=== PATIENT | female | born 1975 | race Caucasian/White ===

== ENCOUNTER 2017-03-17 03:29 | Emergency (ER) | payer SELFPAY ==
--- NOTE | 2017-03-17 19:49 | ER ---
ADMIT: 03/17/2017 RM/LOC: ER [facility] MR#: [id number] [facility] [address] JULIUS MUSTAFAA [address] [place] [id number] Emergency Room Report SEX: F AGE: 41 : 1975 DATE: 03/17/2017 The patient is a 41-year-old female with PTSD, hypertension, depression, out of her Seroquel and lisinopril, has no money for transportation, arrived by ambulance. Exam is remarkable for nontoxic, afebrile female with blood pressure 158/97, pulse rate of 97. Alert, oriented, and cooperative with neutral mood. Good eye contact. Denies suicidal or homicidal ideation. Discharged on Seroquel 300 mg now and another 300 mg when home by cab. Lisinopril 10 mg now. Script for Seroquel 600 mg at bedtime x3 days, and lisinopril 10 mg daily, #3. Medical Social Work consult to coordinate with [facility] for medical assistance for prescription drug cost. Seth Wiley MD/ elijahl JOB #: [id number] CC: Seth Wiley MD, Attending Physician Salud Ferrari MD, Family Physician [facility] Salud Ferrari MD
--- NOTE | 2017-03-21 09:54 | NUR ---
Received referral from ED to help pt with medications. Attempted to contact pt. No answer, voice mail is not set up.
--- NOTE | 2017-03-22 15:29 | NUR ---
SWS contacted pt. States she got her medications filled yesturday. Deny any needs or concerns at this time.
== END 2017-03-17 04:09 | disposition home or self-care (01) ==
LOC: ER 03:29
DX: F32.9 Major depressive disorder, single episode, unspecified (principal); F41.1 Generalized anxiety disorder; I10 Essential (primary) hypertension; Z88.1 Allergy status to other antibiotic agents; Z88.6 Allergy status to analgesic agent; Z79.899 Other long term (current) drug therapy

== ENCOUNTER 2017-03-20 05:55 | Emergency (ER) | payer SELFPAY ==
--- NOTE | 2017-03-20 07:20 | ER ---
ADMIT: 03/20/2017 RM/LOC: ER [facility] MR#: [id number] [address] [facility] [id number] JULIUS MUSTAFAA [address] [place] [id number] Emergency Room Report SEX: F AGE: 41 : 1975 DATE: 03/20/2017 The patient is a 41-year-old female with PTSD, hypertension, depression, off her Seroquel and lisinopril due to money issues for over 30 days. Saw this physician 3 days ago for same after calling ambulance because she had no money for transportation at that time. Prescribed Seroquel for 3 days as well as lisinopril. Told her to get into [facility], which she did not do. She returned tonight by ambulance with same complaint. Exam remarkable for nontoxic, afebrile female, blood pressure 148/89. Given Seroquel 300 mg p.o., contacted [facility], and will transport by cab to [facility]. Seth Wiley MD/ elijahl JOB #: [id number] CC: Seth Wiley MD, Attending Physician Martin Smith MD . [facility]
== END 2017-03-20 07:13 | disposition home or self-care (01) ==
LOC: ER 05:55
DX: F32.9 Major depressive disorder, single episode, unspecified (principal); F43.10 Post-traumatic stress disorder, unspecified; I10 Essential (primary) hypertension; Z88.1 Allergy status to other antibiotic agents; Z88.6 Allergy status to analgesic agent; Z79.899 Other long term (current) drug therapy